=== PATIENT | male | born 1930 | race Caucasian/White ===

== ENCOUNTER 2016-07-10 21:48 | Emergency (ER) | payer OTHER ==
[~2016-07-10] VITALS: Ht 167.6 cm; Wt 73.0 kg
[~2016-07-10 21:48] MED LIST: AMLODIPINE BESY10 M1 PO; BENAZEPRIL HCL10 MG PO; DOXYCYCLINE HY100 M2 PO; FINASTERIDE5 M1 PO; FLOMAX(MONOGRA0.4 MG PO; TRAMADOL HCL50 M1 PO; URISPAS100 MG PO
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
--- NOTE | 2016-07-10 23:28 | CT SCAN REPORT ---
EXAMINATION: CT HEAD WITHOUT CONTRAST CLINICAL INFORMATION: Fall. Injury. COMPARISON: None TECHNIQUE: Contiguous axial imaging was performed from the skull base to vertex without intravenous administration of contrast. FINDINGS: There is no evidence of acute intracranial hemorrhage or territorial infarction. No abnormal mass effect or midline shift is seen. Ervin to white matter differentiation is well preserved. No extra-axial fluid collections are identified. There is atrophy with prominence of the ventricles and the sulci and hypodensity of the periventricular white matter due to chronic small vessel ischemic disease. There is vascular calcifications of the internal carotid arteries bilaterally. No skull fracture. Small scalp hematoma at the left vertex. The mastoid air cells and visualized portions of the paranasal sinuses are well aerated. IMPRESSION: No acute intracranial pathology.
--- NOTE | 2016-07-10 23:39 | CT SCAN REPORT ---
EXAMINATION: CT CERVICAL SPINE WITHOUT CONTRAST CLINICAL INFORMATION: Fall. COMPARISON: None TECHNIQUE: Axial images obtained through cervical spine. Coronal and sagittal reformatted images performed at CT scanner FINDINGS: No fracture. No subluxation. No prevertebral soft tissue swelling. Multilevel degenerative arthropathy with facet joint arthrosis and disc height narrowing. Significant narrowing at the cervical disc C5-C6 with [id number] contact subchondral sclerosis and spurring. There is slight retrolisthesis of C4 on C5 due to the degenerative change. There is widening of the right C3-C4 facet, coronal image 27, sagittal image 47. This is likely degenerative. The facets joints remain normal in alignment. There is layering bilateral pleural effusion at lung apices. IMPRESSION: 1. No fracture or subluxation. 2. Marked multilevel degenerative spondylosis of the cervical spine. If pain persists consider MRI.
[2016-07-10 23:52] VITALS: BP 124/60
== END 2016-07-10 23:53 ==
LOC: ERH 21:48
DX: S09.90XA Unspecified injury of head, initial encounter (principal); W19.XXXA Unspecified fall, initial encounter; Y92.000 Kitchen of unspecified non-institutional (private) residence as the place of occurrence of the external cause; Y93.9 Activity, unspecified